=== PATIENT | male | born 1950 | race Caucasian/White ===

== ENCOUNTER 2017-09-16 07:18 | Day surgery (SDC) | payer MEDICARE, OTHER ==
[~2017-09-16 07:18] MED LIST: Acetaminophen TAB* 325 MG PO PRN; Buffered Lidocaine 0.9% SYRIN* 5 ML/SYR SYRINGE INTRADERM ONE; Cyclopentolate 1% OPTH.SOL* 2 ML BTL ONE; Ketorolac 0.5% OPHTH (NF) 0.5 % 5 ML BTL ONE; Lidocaine 1% MPF* 2 ML VIAL ONE; Neomycin/Polymy/Dex OPHTH.OIN* 3.5 GM ONE; Phenylephrine 2.5% OPTH.SOL* 2 ML BTL ONE; Tetracaine 0.5% OPTH.SOL 4 ML* 1 DROP BTL ONE; Tropicamide 1% OPTH.SOL* BTL ONE
[2017-09-16] MEDS ORDERED: Midazolam* 1 MG/ML 2 ML VIAL (2 MG) ONE (08:54)
[2017-09-16 09:24] VITALS: BP 127/81
--- NOTE | 2017-09-16 11:17 | OP ---
DATE OF OPERATION/DATE OF DICTATION: 09/16/2017 - [facility] DATE OF : 1950. SURGEON: Dr. Keaton Rothman. CYTOTECHNOLOGIST/CYTOLOGY SUPERVISOR: None. ANESTHESIA: Topical with intravenous sedation. PRE-OP DIAGNOSIS: Cataract, left eye. POST-OP DIAGNOSIS: Cataract, left eye. OPERATIVE PROCEDURE: Phacoemulsification and cataract extraction with posterior chamber intraocular lens implant, left eye. COMPLICATIONS: None. BLOOD LOSS: None. DESCRIPTION OF PROCEDURE: The patient was brought to the operating room and received a small amount of intravenous sedation. A drop of Tetracaine was placed in his left eye. He was prepped and draped in the usual sterile fashion for ophthalmic surgery and attention was directed to the left eye where a speculum was placed. A paracentesis was created at the 5 o'clock position and 0.1 cc of 1 percent preservative-free Lidocaine was injected into the anterior chamber followed by DisCoVisc. The eye was digitally stabilized while a 2.75 mm keratome was used to create a triplanar clear corneal incision at the 3 o'clock position. A continuous curvilinear capsulorrhexis was created with a cystotome and Utrata forceps. BSS on a cannula was used to hydrodissect the lens from the capsule. Phacoemulsification was performed in a nzyiig-rhp-dyigqtj technique to create four fragments which were removed. Residual cortical material was removed with irrigation and aspiration. DisCoVisc was used to inflate the capsular bag and an SV25T0 20.5 diopter lens was folded and inserted into the capsular bag. DisCoVisc was removed using irrigation and aspiration. BSS on a cannula was used to hydrate the corneal stroma and seal the wound. At the end of the case the pupil was round and the lens was centered. The eye was of normal pressure and the wound was water tight. The speculum was removed and topical Maxitrol ointment was placed on the surface of the eye. The eye was closed, patched and shielded and the patient was sent to the recovery room in stable condition with post operative instructions and follow-up appointment given. [id number] #: [id number] MTDD
== END 2017-09-16 09:30 | disposition home or self-care (01) ==
LOC: OREAST 07:18
PROVIDERS: ATTEND Ophthalmology
DX: H25.12 Age-related nuclear cataract, left eye (principal); E78.00 Pure hypercholesterolemia, unspecified; M54.9 Dorsalgia, unspecified; Z95.0 Presence of cardiac pacemaker; Z95.1 Presence of aortocoronary bypass graft; Z79.82 Long term (current) use of aspirin; Z85.818 Personal history of malignant neoplasm of other sites of lip, oral cavity, and pharynx
CPT/HCPCS: A9270-GY; J2250

== ENCOUNTER → 2017-09-23 07:02 | Day surgery (SDC) | payer MEDICARE, OTHER ==
[~2017-09-23 07:02] MED LIST changes: -Lidocaine 1% MPF* 2 ML VIAL ONE; -Neomycin/Polymy/Dex OPHTH.OIN* 3.5 GM ONE; -Tetracaine 0.5% OPTH.SOL 4 ML* 1 DROP BTL ONE
[2017-09-23 07:30] VITALS: BP 131/83
== END | disposition home or self-care (01) ==
LOC: OREAST 07:02
PROVIDERS: ATTEND Ophthalmology
DX: H25.11 Age-related nuclear cataract, right eye (principal); Z53.9 Procedure and treatment not carried out, unspecified reason
CPT/HCPCS: A9270-GY

== ENCOUNTER 2017-09-30 07:35 | Day surgery (SDC) | payer MEDICARE, OTHER ==
[~2017-09-30 07:35] MED LIST changes: -Cyclopentolate 1% OPTH.SOL* 2 ML BTL ONE; -Ketorolac 0.5% OPHTH (NF) 0.5 % 5 ML BTL ONE; -Phenylephrine 2.5% OPTH.SOL* 2 ML BTL ONE; -Tropicamide 1% OPTH.SOL* BTL ONE
[2017-09-30] MEDS ORDERED: Tropicamide 1% OPTH.SOL* BTL ONE (08:20)
[2017-09-30] MEDS ORDERED: Tetracaine 0.5% OPTH.SOL 4 ML* 1 DROP BTL ONE (08:20)
[2017-09-30] MEDS ORDERED: Neomycin/Polymy/Dex OPHTH.OIN* 3.5 GM ONE (08:20)
[2017-09-30] MEDS ORDERED: Lidocaine 1% MPF* 2 ML VIAL ONE (08:20)
[2017-09-30] MEDS ORDERED: Cyclopentolate 1% OPTH.SOL* 2 ML BTL ONE (08:20)
[2017-09-30] MEDS ORDERED: Phenylephrine 2.5% OPTH.SOL* 2 ML BTL ONE (08:20)
[2017-09-30] MEDS ORDERED: Ketorolac 0.5% OPHTH (NF) 0.5 % 5 ML BTL ONE (08:20)
[2017-09-30] MEDS ORDERED: fentaNYL* 50 MCG/ML 2 ML VIAL (100 MCG VIAL) ONE (08:33)
[2017-09-30] MEDS ORDERED: Midazolam* 1 MG/ML 2 ML VIAL (2 MG) ONE ×2 (08:33→09:40)
[2017-09-30 09:32] VITALS: BP 103/70
[2017-09-30] MEDS ORDERED: Propofol* 10 MG/ML 20 ML BTL IV PUSH ONE (09:41)
--- NOTE | 2017-09-30 23:26 | OP ---
DATE OF OPERATION: 09/30/17 [facility] DATE OF : [birth year] SURGEON: Keaton Rothman MD SAND OPERATOR: None. ANESTHESIA: Topical with intravenous sedation. PRE-OP DIAGNOSIS: Cataract, right eye. POST-OP DIAGNOSIS: Cataract, right eye. OPERATIVE PROCEDURE: Phacoemulsification and cataract extraction with posterior chamber intraocular lens implant, right eye. COMPLICATIONS: None. BLOOD LOSS: None. DESCRIPTION OF PROCEDURE: The patient was brought to the operating room and received a small amount of intravenous sedation. A drop of Tetracaine was placed in his right eye. He was prepped and draped in the usual sterile fashion for ophthalmic surgery and attention was directed to the right eye where a speculum was placed. A paracentesis was created at the 11 o'clock position and 0.1 cc of 1 percent preservative-free Lidocaine was injected into the anterior chamber followed by DisCoVisc. The eye was digitally stabilized while a 2.75 mm keratome was used to create a triplanar clear corneal incision at the 9 o'clock position. A continuous curvilinear capsulorrhexis was created with a cystotome and Utrata forceps. BSS on a cannula was used to hydrodissect the lens from the capsule. Phacoemulsification was performed in a divide-and- conquer technique to create four fragments which were removed. Residual cortical material was removed with irrigation and aspiration. DisCoVisc was used to inflate the capsular bag and an SV25T0 20.5 diopter lens was folded and inserted into the capsular bag. DisCoVisc was removed using irrigation and aspiration. BSS on a cannula was used to hydrate the corneal stroma and seal the wound. At the end of the case the pupil was round and the lens was centered. The eye was of normal pressure and the wound was water tight. The speculum was removed and topical Maxitrol ointment was placed on the surface of the eye. The eye was closed, patched and shielded and the patient was sent to the recovery room in stable condition with postoperative instructions and follow -up appointment given. [id number] #: [id number] MTDD
== END 2017-09-30 09:40 | disposition home or self-care (01) ==
LOC: OREAST 07:35
PROVIDERS: ATTEND Ophthalmology
DX: H25.11 Age-related nuclear cataract, right eye (principal); I25.10 Atherosclerotic heart disease of native coronary artery without angina pectoris; Z95.1 Presence of aortocoronary bypass graft; Z79.01 Long term (current) use of anticoagulants; M19.90 Unspecified osteoarthritis, unspecified site; K21.9 Gastro-esophageal reflux disease without esophagitis
CPT/HCPCS: A9270-GY; J2250; J2704; J3010

== ENCOUNTER 2019-01-18 06:58 | Day surgery (SDC) | payer MEDICARE, OTHER ==
[~2019-01-18 06:58] MED LIST changes: -Acetaminophen TAB* 325 MG PO PRN; -Buffered Lidocaine 0.9% SYRIN* 5 ML/SYR SYRINGE INTRADERM ONE; +Famotidine IV* 10 MG/ML 2 ML (20 mg) ONE; +ceFAZolin 2 GM PREMIX in ORs 2 GM/50 ML BAG IVPB ONE
[2019-01-18] MEDS ORDERED: Phenylephrine 10 MG/ML VIAL* 1 ML VIAL ONE (08:31)
[2019-01-18] MEDS ORDERED: Lidocaine 2% PF * 5 ML VIAL ONE (08:31)
[2019-01-18] MEDS ORDERED: Ondansetron INJ* 2 MG/ML VIAL ONE (08:31)
[2019-01-18] MEDS ORDERED: Propofol* 10 MG/ML 20 ML BTL ONE (08:31)
[2019-01-18] MEDS ORDERED: Ketorolac INJ* 30 MG/ML 1 ML VIAL ONE (08:31)
[2019-01-18] MEDS ORDERED: fentaNYL* 50 MCG/ML 2 ML VIAL (100 MCG VIAL) ONE ×2 (08:31→10:17)
[2019-01-18] MEDS ORDERED: Dexamethasone IV* 4 MG/ML 1 ML (4 MG) ONE (08:31)
[2019-01-18] MEDS ORDERED: Midazolam* 1 MG/ML 5 ML VIAL (5 MG) ONE (08:32)
[2019-01-18] MEDS ORDERED: Bupivacaine 0.5%* 50 ML VIAL ONE (09:24)
[2019-01-18] MEDS ORDERED: Ondansetron INJ* 2 MG/ML VIAL IV PRN (10:20)
[2019-01-18] MEDS ORDERED: oxyCODONE/Acetamin 5/325 MG* TAB PO PRN (10:20)
[2019-01-18] MEDS ORDERED: Naloxone* 0.4 MG/ML 1 ML VIAL IV PRN (10:20)
[2019-01-18] MEDS ORDERED: fentaNYL* 50 MCG/ML 2 ML VIAL (100 MCG VIAL) IV PRN (10:20)
[2019-01-18 15:01] VITALS: BP 119/72
--- NOTE | 2019-01-18 20:16 | OP ---
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 OPERATIVE PROCEDURE: Left four-corner fusion, midfoot with tibial bone graft. DESCRIPTION OF PROCEDURE: The patient was taken to the operating room where a lateral longitudinal incision was made over the dorsum of the first column. We dissected out the first TMT joint as well as the first and second intercuneiform joint. We then placed a Chavez retractor over the dorsum of the second metatarsal base and dissected out the dorsal capsule of the second TMT joint and a laminar framing mill supervisor was placed between the first and second metatarsal bases to allow visualization of that joint as well. All 4 joints were then prepared for arthrodesis using a curette and a small power boo. We harvested some cancellous bone from the proximal Gerdy's tubercle through a 3 cm incision at the proximal knee. We split the iliotibial band at this level and opened up the lateral cortex with a small boo. We harvested cancellous bone replacing it then with some allograft packed chips. We closed the periosteum with 2-0 Vicryl, 3-0 Monocryl and a subcuticular stitch. The autograft was then placed along the 4 spaces in the midfoot, which were then fixed sequentially with dorsal distal, proximal, plantar lag screws 3.0 mm diameter in the first and then second metatarsal bases and then a medial spanning 3.0 plate, which was . Through this plate, we lagged the first and second cuneiform together, the first cuneiform towards the second metatarsal base and the first and second metatarsals. X-rays intraoperatively showed satisfactory position of the hardware and the bone surfaces. We irrigated thoroughly, closing with Monocryl and nylon for the skin and a compression dressing and plaster splint applied. [id number]/CPS #: [id number] [facility]DREN'S HOSPITALKatharina
== END 2019-01-18 14:35 | disposition home or self-care (01) ==
LOC: OR 06:58
PROVIDERS: ATTEND Orthopaedic Surgery
DX: M19.172 Post-traumatic osteoarthritis, left ankle and foot (principal); I25.10 Atherosclerotic heart disease of native coronary artery without angina pectoris; Z95.1 Presence of aortocoronary bypass graft; Z95.0 Presence of cardiac pacemaker; Z95.5 Presence of coronary angioplasty implant and graft; Z85.819 Personal history of malignant neoplasm of unspecified site of lip, oral cavity, and pharynx; G47.33 Obstructive sleep apnea (adult) (pediatric); K21.9 Gastro-esophageal reflux disease without esophagitis
CPT/HCPCS: 76000; C1713; C1776; C9359; J0690; J1100; J1885; J2250; J2405; J2704; J3010; J3490

== ENCOUNTER → 2019-02-24 12:05 | Day surgery (SDC) | payer MEDICARE, OTHER ==
[~2019-02-24 12:05] MED LIST changes: +Buffered Lidocaine 1% SYRIN* 1 ML/SYRINGE INTRADERM ONE; +Dexamethasone IV* 4 MG/ML 1 ML (4 MG) IV SLOW PU ONE; +Dexamethasone IV* 4 MG/ML 1 ML (4 MG) ONE; +DiMENhydriNATE IV* 50 MG/ML VIAL IV PUSH PRN; +Famotidine IV* 10 MG/ML 2 ML (20 mg) IV ONE; +Ketorolac INJ* 30 MG/ML 1 ML VIAL IV PRN; +Lactated Ringers 1000 ML Bag* 1,000 ML IV SCH; +Lidocaine 2% PF * 5 ML VIAL ONE; +Lidocaine 4% TOPICAL* 50 ML TOP.SOLN ONE; +Metoprolol Tartrate IV* 1 MG/ML 5 ML VIAL ONE; +Midazolam* 1 MG/ML 5 ML VIAL (5 MG) ONE; +Naloxone* 0.4 MG/ML 1 ML VIAL IV PRN; +Onabotulinimtoxina 100 UNITS* VIAL ONE; +Ondansetron INJ* 2 MG/ML VIAL ONE; +Oxymetazoline 0.05% NASAL SPR* 15 ML BTL ONE; +Propofol* 10 MG/ML 20 ML BTL ONE; +Succinylcholine* 20 MG/ML 10 ML VIAL ONE; -ceFAZolin 2 GM PREMIX in ORs 2 GM/50 ML BAG IVPB ONE; +fentaNYL* 50 MCG/ML 2 ML VIAL (100 MCG VIAL) IV PRN; +fentaNYL* 50 MCG/ML 2 ML VIAL (100 MCG VIAL) ONE
[2019-02-24 15:54] VITALS: BP 132/86
--- NOTE | 2019-02-24 22:25 | OP ---
DATE OF PROCEDURE: 02/24/19 - [facility] DATE OF : 48 SURGEON: Derrick Pearce MD. ANESTHESIA: General endotracheal anesthesia. PRE-OP DIAGNOSES: 1. Cricopharyngeus spasm. 2. Esophageal stricture. POST-OP DIAGNOSES: 1. Cricopharyngeus spasm. 2. Esophageal stricture. OPERATIVE PROCEDURE: Transoral Botox injection into the cricopharyngeus muscle and bougie dilation of esophageal stricture under general endotracheal anesthesia. COMPLICATIONS: None. DISPOSITION: Good. SPECIMENS: None. BLOOD LOSS: Minimal. I dilated him up to a 60-St [place] bougie. DESCRIPTION OF PROCEDURE: The patient was taken to the operating room, placed in the supine position on the operating table and general endotracheal anesthesia was induced. He was orotracheally intubated, turned and draped for the surgery. Initially, I did the Botox injection using a diverticular scope, and following an NG-tube that I had placed, I inserted into the postcricoid region, dilated it up, and found the cricopharyngeus. He had a small scar beyond there, and right there in the posterior aspect, I injected 20 units of Botox with a transoral injection needle. I then did serial dilations with bougie sounds that I had with some Surgilube starting at 36-St Helenian and working way up to a 60-[place] bougie without difficulties. The patient tolerated this well, no complications, transferred to the recovery room in stable condition. [id number] #: [id number] MTDD
== END | disposition home or self-care (01) ==
LOC: OR 12:05
PROVIDERS: ATTEND Otolaryngology
DX: K22.4 Dyskinesia of esophagus (principal); R13.14 Dysphagia, pharyngoesophageal phase; K22.2 Esophageal obstruction; I25.10 Atherosclerotic heart disease of native coronary artery without angina pectoris; Z95.1 Presence of aortocoronary bypass graft; Z95.5 Presence of coronary angioplasty implant and graft; I49.5 Sick sinus syndrome; Z95.0 Presence of cardiac pacemaker; Z85.51 Personal history of malignant neoplasm of bladder; G47.33 Obstructive sleep apnea (adult) (pediatric); Z85.21 Personal history of malignant neoplasm of larynx
CPT/HCPCS: A9270-GY; J0330; J0585; J1100; J2250; J2405; J2704; J3010; J3490

== ENCOUNTER 2020-10-19 07:15 | Inpatient (IN) ==
[~2020-10-19 07:15] MED LIST changes: +Buffered Lidocaine 1% SYRIN 1 ml INTRADERM ONE; -Buffered Lidocaine 1% SYRIN* 1 ML/SYRINGE INTRADERM ONE; -Dexamethasone IV* 4 MG/ML 1 ML (4 MG) IV SLOW PU ONE; -Dexamethasone IV* 4 MG/ML 1 ML (4 MG) ONE; -DiMENhydriNATE IV* 50 MG/ML VIAL IV PUSH PRN; -Famotidine IV* 10 MG/ML 2 ML (20 mg) IV ONE; -Famotidine IV* 10 MG/ML 2 ML (20 mg) ONE; -Ketorolac INJ* 30 MG/ML 1 ML VIAL IV PRN; -Lactated Ringers 1000 ML Bag* 1,000 ML IV SCH; +Lactated Ringers 1000 ml BAG 1,000 ML IV SCH; -Lidocaine 2% PF * 5 ML VIAL ONE; -Lidocaine 4% TOPICAL* 50 ML TOP.SOLN ONE; -Metoprolol Tartrate IV* 1 MG/ML 5 ML VIAL ONE; +Midazolam 2 mg/2 ml VIAL 1 mg/ml 2 ml VIAL (2 mg) ONE; -Midazolam* 1 MG/ML 5 ML VIAL (5 MG) ONE; -Naloxone* 0.4 MG/ML 1 ML VIAL IV PRN; -Onabotulinimtoxina 100 UNITS* VIAL ONE; -Ondansetron INJ* 2 MG/ML VIAL ONE; -Oxymetazoline 0.05% NASAL SPR* 15 ML BTL ONE; -Propofol* 10 MG/ML 20 ML BTL ONE; +ROPIVACAINE 5 MG/ML 30 ML BTL (0.5%) ONE; -Succinylcholine* 20 MG/ML 10 ML VIAL ONE; -fentaNYL* 50 MCG/ML 2 ML VIAL (100 MCG VIAL) IV PRN; -fentaNYL* 50 MCG/ML 2 ML VIAL (100 MCG VIAL) ONE
[2020-10-19] MEDS ORDERED: ceFAZolin 2 GM PREMIX 2 GM/50 ML BAG ONE (07:17)
[2020-10-19] MEDS ORDERED: Buffered Lidocaine 1% SYRIN 1 ml INTRADERM ONE (07:18)
[2020-10-19] MEDS ORDERED: Lidocaine 1% MPF 5 ML VIAL ONE (07:45)
[2020-10-19] MEDS ORDERED: Midazolam 2 mg/2 ml VIAL 1 mg/ml 2 ml VIAL (2 mg) ONE (08:05)
[2020-10-19] MEDS ORDERED: Dexamethasone IV 4 MG/ML VIAL 1 ml VIAL ONE (08:05)
[2020-10-19] MEDS ORDERED: ROPIVACAINE 5 MG/ML 30 ML BTL (0.5%) ONE ×2 (08:21→08:35)
[2020-10-19] MEDS ORDERED: fentaNYL 100 mcg/2 ml 50 MCG/ML VIAL ONE (08:37)
[2020-10-19] MEDS ORDERED: Phenylephrine IV 10 MG/ML 1 ml VIAL ONE (10:25)
[2020-10-19] MEDS ORDERED: DiMENhydriNATE IV 50 mg/ml 1 ml VIAL IV PUSH PRN (10:44)
[2020-10-19] MEDS ORDERED: fentaNYL 100 mcg/2 ml 50 MCG/ML VIAL IV PRN (10:44)
[2020-10-19] MEDS ORDERED: Naloxone 0.4 mg VIAL 0.4 mg/ml 1 ml VIAL IV PRN (10:44)
[2020-10-19] MEDS ORDERED: Propofol 10 MG/ML 20 ML BTL ONE (11:07)
[2020-10-19] MEDS ORDERED: Ondansetron 4 mg VIAL 2 MG/ML 2 ml VIAL IV PRN (11:37)
[2020-10-19] MEDS ORDERED: Magnesium Hydroxide LIQ 30 ML UDC PO PRN (11:37)
[2020-10-19] MEDS ORDERED: Morphine 2 MG/ML SYRINGE IV PRN (11:37)
[2020-10-19] MEDS ORDERED: Lactulose 30 ml UDC PO PRN (11:37)
[2020-10-19] MEDS ORDERED: oxyCODONE/Acetamin 5/325 mg TAB PO PRN (11:37)
[2020-10-19] MEDS ORDERED: diPHENhydraMINE 25 mg TAB PO PRN (11:37)
[2020-10-19] MEDS ORDERED: Ondansetron ODT 4 mg TAB 4 MG TAB PO PRN (11:37)
[2020-10-19] MEDS ORDERED: diPHENhydraMINE IV 50 MG/ML 1 ml VIAL (BENADRYL) IV PRN (11:37)
[2020-10-19] MEDS: Lactated Ringers 1000 ml BAG 1,000 ML IV SCH (13:04)
[2020-10-19] MEDS: Carbidopa/Levodop 25/100 MG TAB PO SCH ×2 (13:53→18:18)
[2020-10-19] MEDS: ceFAZolin 1 GM ADVAN 1 GM in NS 0.9% 50 ML 50 ML IVPB SCH (17:12)
[2020-10-19] MEDS: Magnesium Hydroxide LIQ 30 ML UDC PO SCH (20:51)
[2020-10-19] MEDS ORDERED: ROPINIROLE 6 MG PO SCH (21:00)
[2020-10-20] MEDS: oxyCODONE/Acetamin 5/325 mg TAB PO PRN ×2 (00:45→06:00)
[2020-10-20] MEDS: ceFAZolin 1 GM ADVAN 1 GM in NS 0.9% 50 ML 50 ML IVPB SCH ×2 (00:46→10:52)
[2020-10-20] MEDS: Lactated Ringers 1000 ml BAG 1,000 ML IV SCH (00:52)
[2020-10-20 06:09] LABS: Hematocrit 34 % (42-52); Hemoglobin 11.7 g/dL (14.0-18.0); Mean Platelet Volume 7.7 fL (7.4-10.4); Platelet Count 143 10^3/uL (150-450)
[2020-10-20 06:32] LABS: BUN/Creatinine Ratio 18.9 (8-20); Calcium 8.3 mg/dL (8.6-10.3); EGFR African American 94.6 (>60); EGFR Non-African American 78.2 (>60); Potassium 4.3 mmol/L (3.5-5.0)
[2020-10-20] MEDS: Magnesium Hydroxide LIQ 30 ML UDC PO SCH ×2 (08:28→23:12)
[2020-10-20] MEDS: Vitamin THERAPEUTIC TAB PO SCH (08:28)
[2020-10-20] MEDS: Aspirin EC 81 mg TAB.EC (enteric coated) PO SCH (08:29)
[2020-10-20] MEDS: Carbidopa/Levodop 25/100 MG TAB PO SCH ×3 (08:29→18:08)
[2020-10-20] MEDS ORDERED: Furosemide 20 mg/2 ml IV VIAL IV SLOW PU ONE (13:50)
[2020-10-20] MEDS ORDERED: Iohexol 350 (CONTRAST) 500 ML MDV IV SCH (14:04)
[2020-10-20] MEDS ORDERED: Piperacillin/Tazobac ADVAN 3.375 GM in NS 0.9% 100 ml BAG 100 ML IV ONE (15:49)
[2020-10-20] MEDS ORDERED: Zosyn per Pharmacy NOTE FOLLOW UP SCH (16:00)
[2020-10-20 16:03] LABS: Influenza A Molecular Negative (Negative); Influenza B Molecular Negative (Negative)
[2020-10-20 16:09] LABS: ABS Eosinophils 0.1 10^3/ul (0-0.6); ABS Lymphocytes 0.4 10^3/ul (1.0-4.8); ABS Monocytes 0.4 10^3/ul (0-0.8); ABS Neutrophils 6.6 10^3/ul (1.5-7.7); Hematocrit 32 % (42-52); Hemoglobin 11.2 g/dL (14.0-18.0); Lymphocyte % 5.1 %; Mean Corpuscular HGB Conc 35 g/dL (31-36); Mean Corpuscular Hemoglobin 34 pg (27-31); Mean Corpuscular Volume 96 fL (80-94); Mean Platelet Volume 7.7 fL (7.4-10.4); Platelet Count 109 10^3/uL (150-450); Red Blood Count 3.32 10^6 /uL (4.18-5.48); Red Cell Distribution Width 13 % (10-15); White Blood Count 7.5 10^3/uL (3.5-10.8)
[2020-10-20 16:26] LABS: Albumin 3.6 g/dL (3.2-5.2); Albumin/Globulin Ratio 1.7 (1-3); BUN/Creatinine Ratio 20.9 (8-20); Calcium 8.1 mg/dL (8.6-10.3); EGFR African American 79.8 (>60); Globulin 2.1 g/dL (2-4); Potassium 4.6 mmol/L (3.5-5.0); Total Bilirubin 0.6 mg/dL (0.2-1.0); Total Protein 5.7 g/dL (6.4-8.9)
[2020-10-20] MEDS ORDERED: Furosemide 40 mg/4 ml IV VIAL IV SLOW PU ONE (19:31)
[2020-10-20] MEDS: ZOSYN 3.375 GM Q8H per EXTENDED INFUSION IV SCH (22:47)
[2020-10-20 23:39] LABS: Urine Appearance Clear; Urine Bilirubin Negative (Negative); Urine Blood 2+ (Negative); Urine Color Straw; Urine Glucose Negative (Negative); Urine Ketones Negative (Negative); Urine Nitrite Negative (Negative); Urine Protein Negative (Negative); Urine Specific Gravity 1.023 (1.010-1.030); Urine Urobilinogen Negative (Negative)
[2020-10-20 23:50] LABS: Urine Bacteria Absent (Absent); Urine Red Blood Cell 1+(3-5/hpf) (Absent); Urine White Blood Cell Absent (Absent)
[2020-10-21 05:00] LABS: Hematocrit 27 % (42-52); Hemoglobin 9.3 g/dL (14.0-18.0); Mean Corpuscular HGB Conc 34 g/dL (31-36); Mean Corpuscular Hemoglobin 33 pg (27-31); Mean Corpuscular Volume 95 fL (80-94); Red Blood Count 2.86 10^6 /uL (4.18-5.48); Red Cell Distribution Width 13 % (10-15)
[2020-10-21 05:07] LABS: Calcium 7.9 mg/dL (8.6-10.3); EGFR African American 53.8 (>60); EGFR Non-African American 44.4 (>60); Potassium 4.5 mmol/L (3.5-5.0)
[2020-10-21] MEDS: ZOSYN 3.375 GM Q8H per EXTENDED INFUSION IV SCH ×3 (05:39→21:28)
[2020-10-21 06:58] LABS: ABS Basophils 0.1 10^3/ul (0-0.2); ABS Eosinophils 0.3 10^3/ul (0-0.6); ABS Lymphocytes 0.8 10^3/ul (1.0-4.8); ABS Monocytes 0.4 10^3/ul (0-0.8); ABS Neutrophils 7.4 10^3/ul (1.5-7.7); Eosinophil % 2.8 %; Lymphocyte % 9.1 %; Mean Platelet Volume 8.2 fL (7.4-10.4); Platelet Count 95 10^3/uL (150-450)
[2020-10-21] MEDS: Aspirin EC 81 mg TAB.EC (enteric coated) PO SCH (08:17)
[2020-10-21] MEDS: Vitamin THERAPEUTIC TAB PO SCH (08:18)
[2020-10-21] MEDS: Carbidopa/Levodop 25/100 MG TAB PO SCH ×3 (08:19→18:28)
[2020-10-21] MEDS: Magnesium Hydroxide LIQ 30 ML UDC PO SCH ×2 (08:19→21:34)
[2020-10-21] MEDS ORDERED: Linezolid 600 MG IVPREMIX(*) 600 MG/300 ML BAG IVPB SCH (09:00)
[2020-10-21] MEDS ORDERED: Vancomycin 1,000 MG in NS 0.9% 250 ml 250 ML IVPB ONE (09:31)
[2020-10-21] MEDS ORDERED: Vancomycin per Pharmacy 1 EA NOTE FOLLOW UP PRN (09:33)
[2020-10-21] MEDS ORDERED: VANCOMYCIN 1250 MG X 1 DOSE, THEN PER PHARMACY PROTOCOL IVPB ONE (10:00)
[2020-10-21] MEDS ORDERED: Vancomycin per Pharmacy 1 EA NOTE FOLLOW UP SCH (10:00)
[2020-10-21 10:24] LABS: Magnesium 2.1 mg/dL (1.9-2.7); Phosphorus 3.2 mg/dL (2.5-5.0)
[2020-10-22] MEDS: Clindamycin 600 MG/D5W BAG 600 MG/50 ML BAG IV SCH ×3 (01:26→17:00)
[2020-10-22] MEDS: ZOSYN 3.375 GM Q8H per EXTENDED INFUSION IV SCH ×3 (04:23→20:39)
[2020-10-22 05:25] LABS: Hematocrit 25 % (42-52); Hemoglobin 8.6 g/dL (14.0-18.0); Mean Corpuscular HGB Conc 34 g/dL (31-36); Mean Corpuscular Hemoglobin 32 pg (27-31); Mean Corpuscular Volume 96 fL (80-94); Mean Platelet Volume 7.9 fL (7.4-10.4); Platelet Count 92 10^3/uL (150-450); Red Blood Count 2.64 10^6 /uL (4.18-5.48); Red Cell Distribution Width 13 % (10-15); White Blood Count 6.6 10^3/uL (3.5-10.8)
[2020-10-22 05:42] LABS: Vancomycin Random 4.9 mcg/mL
[2020-10-22 05:43] LABS: BUN/Creatinine Ratio 19.2 (8-20); Calcium 7.9 mg/dL (8.6-10.3); EGFR African American 90.2 (>60); EGFR Non-African American 74.5 (>60); Potassium 3.9 mmol/L (3.5-5.0)
[2020-10-22] MEDS ORDERED: Vancomycin Random Level NOTE FOLLOW UP ONE (06:00)
[2020-10-22] MEDS: Vitamin THERAPEUTIC TAB PO SCH (09:44)
[2020-10-22] MEDS: Carbidopa/Levodop 25/100 MG TAB PO SCH ×3 (09:47→17:00)
[2020-10-22] MEDS: Lactulose 30 ml UDC PO SCH ×2 (09:57→22:20)
[2020-10-22] MEDS: Magnesium Hydroxide LIQ 30 ML UDC PO SCH (09:58)
[2020-10-22] MEDS: Pantoprazole VIAL 40 MG VIAL IV SCH ×2 (13:53→20:43)
[2020-10-22] MEDS ORDERED: Magnesium Hydroxide LIQ 30 ML UDC PO PRN (14:17)
[2020-10-22] MEDS ORDERED: GuaiFENesin DM sugar free 100mg/10mg 5 ML UDC PO PRN (16:27)
[2020-10-23] MEDS: Clindamycin 600 MG/D5W BAG 600 MG/50 ML BAG IV SCH ×3 (01:10→18:10)
[2020-10-23] MEDS: ZOSYN 3.375 GM Q8H per EXTENDED INFUSION IV SCH ×3 (04:22→21:35)
[2020-10-23 05:34] LABS: Hematocrit 22 % (42-52); Hemoglobin 7.5 g/dL (14.0-18.0); Mean Corpuscular HGB Conc 34 g/dL (31-36); Mean Corpuscular Hemoglobin 32 pg (27-31); Mean Corpuscular Volume 96 fL (80-94); Mean Platelet Volume 8.2 fL (7.4-10.4); Platelet Count 100 10^3/uL (150-450); Red Blood Count 2.34 10^6 /uL (4.18-5.48); Red Cell Distribution Width 13 % (10-15); White Blood Count 5.6 10^3/uL (3.5-10.8)
[2020-10-23] MEDS: Carbidopa/Levodop 25/100 MG TAB PO SCH ×3 (08:56→18:13)
[2020-10-23] MEDS: Vitamin THERAPEUTIC TAB PO SCH (08:58)
[2020-10-23] MEDS: Pantoprazole VIAL 40 MG VIAL IV SCH ×2 (09:00→21:12)
[2020-10-23] MEDS: Polyethylene Glycol 3350 17 GM PACKET PO SCH (09:01)
[2020-10-23] MEDS: Lactulose 30 ml UDC PO SCH ×2 (09:01→21:36)
[2020-10-24] MEDS: Clindamycin 600 MG/D5W BAG 600 MG/50 ML BAG IV SCH ×3 (02:30→17:45)
[2020-10-24] MEDS: ZOSYN 3.375 GM Q8H per EXTENDED INFUSION IV SCH ×3 (04:57→20:09)
[2020-10-24] MEDS: Carbidopa/Levodop 25/100 MG TAB PO SCH ×3 (08:35→17:46)
[2020-10-24] MEDS: Vitamin THERAPEUTIC TAB PO SCH (08:40)
[2020-10-24] MEDS: Lactulose 30 ml UDC PO SCH ×2 (08:44→20:28)
[2020-10-24] MEDS: Pantoprazole VIAL 40 MG VIAL IV SCH ×2 (08:46→20:08)
[2020-10-24] MEDS: Polyethylene Glycol 3350 17 GM PACKET PO SCH (08:59)
[2020-10-24 09:43] LABS: ABS Eosinophils 0.3 10^3/ul (0-0.6); ABS Lymphocytes 0.4 10^3/ul (1.0-4.8); ABS Monocytes 0.5 10^3/ul (0-0.8); ABS Neutrophils 3.7 10^3/ul (1.5-7.7); Eosinophil % 5.7 %; Hematocrit 24 % (42-52); Hemoglobin 8.1 g/dL (14.0-18.0); Lymphocyte % 8.1 %; Mean Corpuscular HGB Conc 34 g/dL (31-36); Mean Corpuscular Hemoglobin 33 pg (27-31); Mean Corpuscular Volume 97 fL (80-94); Mean Platelet Volume 8.2 fL (7.4-10.4); Platelet Count 141 10^3/uL (150-450); Red Blood Count 2.48 10^6 /uL (4.18-5.48); Red Cell Distribution Width 14 % (10-15); White Blood Count 4.9 10^3/uL (3.5-10.8)
[2020-10-24 10:04] LABS: BUN/Creatinine Ratio 16.8 (8-20); Calcium 8.1 mg/dL (8.6-10.3); EGFR African American 94.6 (>60); EGFR Non-African American 78.2 (>60); Potassium 3.9 mmol/L (3.5-5.0)
[2020-10-25] MEDS: Clindamycin 600 MG/D5W BAG 600 MG/50 ML BAG IV SCH ×2 (01:14→10:19)
[2020-10-25] MEDS: ZOSYN 3.375 GM Q8H per EXTENDED INFUSION IV SCH ×2 (04:52→12:31)
[2020-10-25 07:16] LABS: ABS Eosinophils 0.2 10^3/ul (0-0.6); ABS Lymphocytes 0.5 10^3/ul (1.0-4.8); ABS Monocytes 0.7 10^3/ul (0-0.8); ABS Neutrophils 3.5 10^3/ul (1.5-7.7); Hematocrit 22 % (42-52); Hemoglobin 7.5 g/dL (14.0-18.0); Lymphocyte % 10.3 %; Mean Corpuscular HGB Conc 34 g/dL (31-36); Mean Corpuscular Hemoglobin 33 pg (27-31); Mean Corpuscular Volume 96 fL (80-94); Mean Platelet Volume 8.4 fL (7.4-10.4); Platelet Count 146 10^3/uL (150-450); Red Blood Count 2.32 10^6 /uL (4.18-5.48); Red Cell Distribution Width 13 % (10-15); White Blood Count 4.9 10^3/uL (3.5-10.8)
[2020-10-25 07:39] LABS: BUN/Creatinine Ratio 17.8 (8-20); Calcium 7.9 mg/dL (8.6-10.3); EGFR African American 100.7 (>60); EGFR Non-African American 83.2 (>60); Potassium 4.3 mmol/L (3.5-5.0)
[2020-10-25] MEDS: Carbidopa/Levodop 25/100 MG TAB PO SCH ×2 (08:18→14:31)
[2020-10-25] MEDS: Lactulose 30 ml UDC PO SCH (08:37)
[2020-10-25] MEDS: Polyethylene Glycol 3350 17 GM PACKET PO SCH (08:37)
[2020-10-25] MEDS: Pantoprazole VIAL 40 MG VIAL IV SCH (10:19)
[2020-10-25] MEDS: Vitamin THERAPEUTIC TAB PO SCH (10:19)
[2020-10-25 11:23] LABS: Hematocrit 24 % (42-52); Hemoglobin 7.9 g/dL (14.0-18.0)
[2020-10-25 11:33] VITALS: BP 144/58
== END 2020-10-25 16:15 | disposition home health service (06) | DRG 469 ==
LOC: SSU 07:15 → OR 07:15 → ICU 10-20 15:10 → SSU 10-23 16:16
PROVIDERS: ADMIT Orthopaedic Surgery Adult Reconstructive Orthopaedic Surgery; ATTEND Orthopaedic Surgery Adult Reconstructive Orthopaedic Surgery

== ENCOUNTER 2023-10-14 15:56 | Observation (INO) ==
[2023-10-14] MEDS: NS 0.9% 1000 ml BAG 1,000 ML IV ONE ×2 (16:48→18:39)
[2023-10-14] MEDS: Albuterol/Ipratropium NEB.SOL (2.5/0.5 MG) 3 ML NEB.SOLN INH ONE (16:48)
[2023-10-14 16:53] LABS: ABS Eosinophils 0.1 10^3/uL (0.0-0.5); ABS Lymphocytes 0.6 10^3/uL (1.0-4.8); ABS Monocytes 0.3 10^3/uL (0.0-1.1); ABS Neutrophils 3.2 10^3/uL (1.5-7.6); Hematocrit 39.4 % (38-53); Hemoglobin 13.3 g/dL (13.2-16.3); Lymphocyte % 13.5 %; Mean Corpuscular Hemoglobin 32.7 pg (27-33); Mean Corpuscular Hgb Conc 33.8 g/dL (31-36); Mean Corpuscular Volume 96.7 fL (80-97); Mean Platelet Volume 7.8 fL (7.5-11.2); Platelet Count 146 10^3/uL (150-450); Red Blood Count 4.07 10^6/uL (4.06-5.63); Red Cell Distribution Width 13.6 % (12-17); White Blood Count 4.2 10^3/uL (3.6-10.2)
[2023-10-14 17:10] LABS: Activated Partial Thrombo Time 32.9 seconds (26.0-38.0); INR 1.05 (0.83-1.13)
[2023-10-14 17:12] LABS: Albumin 3.9 g/dL (3.2-5.2); Albumin/Globulin Ratio 1.3 (1-3); C Reactive Protein 43.89 mg/L (<8.01); Calcium 8.4 mg/dL (8.6-10.3); Creatinine, Serum 0.95 mg/dL (0.67-1.17); Potassium 4.2 mmol/L (3.5-5.0); Total Bilirubin 0.6 mg/dL (0.2-1.0); Total Protein 6.9 g/dL (6.4-8.9)
[2023-10-14 17:16] LABS: Urine Appearance Turbid; Urine Color Orange
[2023-10-14] MEDS: methylPREDNISolone SOD SUCC 125 mg 2 ML VIAL IV ONE (17:20)
[2023-10-14] MEDS: Acetaminophen IV 1 GM/100ML 1,000 MG/100 ML BAG IV ONE (17:20)
[2023-10-14 17:39] LABS: Urine Specific Gravity 1.027 (1.002-1.030)
[2023-10-14] MEDS: Ondansetron 4 mg VIAL 2 MG/ML 2 ml VIAL IV ONE (17:40)
[2023-10-14] MEDS: Iohexol 350 (CONTRAST) 500 ML MDV IV ONE (17:55)
[2023-10-14 18:00] LABS: Urine Bacteria Absent /HPF (Absent); Urine Red Blood Cell 3+(>10/hpf) /HPF (0-Trace); Urine White Blood Cell 2+(11-20/hpf) /HPF (0-Trace)
[2023-10-14] MEDS: Piperacillin/Tazobac 3.375 BAG 3.375 GM/100 ML BAG IV ONE (18:39)
[2023-10-14] MEDS: Enoxaparin 80 MG/0.8 ML SYR SUBCUT ONE (19:23)
[2023-10-14] MEDS ORDERED: Zosyn per Pharmacy NOTE FOLLOW UP SCH (20:00)
[2023-10-14] MEDS: Carbidopa/Levodop 25/100 MG TAB PO SCH (21:23)
[2023-10-14] MEDS: ROPINIROLE 6 MG PO SCH (21:24)
[2023-10-14] MEDS: ZOSYN 3.375 GM Q8H per EXTENDED INFUSION IV SCH (22:31)
[2023-10-15] MEDS: Al Hydrox/Mg Hydrox/Simet LIQ 30 ML UDC PO ONE (04:26)
[2023-10-15] MEDS ORDERED: Heparin DRIP 25,000 UNITS BAG 25,000 UNITS/250 ML BAG IV SCH (05:00)
[2023-10-15] MEDS ORDERED: Heparin 5000 UNITS/ML 1 mL VIAL IV SCH (05:00)
[2023-10-15 06:43] LABS: ABS Lymphocytes 0.3 10^3/uL (1.0-4.8); ABS Monocytes 0.2 10^3/uL (0.0-1.1); ABS Neutrophils 7.7 10^3/uL (1.5-7.6); Hematocrit 36.8 % (38-53); Hemoglobin 12.7 g/dL (13.2-16.3); Lymphocyte % 3.5 %; Mean Corpuscular Hemoglobin 33.2 pg (27-33); Mean Corpuscular Hgb Conc 34.6 g/dL (31-36); Mean Corpuscular Volume 96.2 fL (80-97); Platelet Count 133 10^3/uL (150-450); Red Blood Count 3.82 10^6/uL (4.06-5.63); Red Cell Distribution Width 13.5 % (12-17); White Blood Count 8.2 10^3/uL (3.6-10.2)
[2023-10-15 07:00] LABS: Calcium 8.3 mg/dL (8.6-10.3); Creatinine, Serum 0.93 mg/dL (0.67-1.17); Potassium 4.1 mmol/L (3.5-5.0); eGFR CKD-EPI 86.2 (>60)
[2023-10-15] MEDS: Enoxaparin 80 MG/0.8 ML SYR SUBCUT SCH (07:42)
[2023-10-15] MEDS ORDERED: Aspirin EC 81 mg TAB.EC (enteric coated) PO SCH (09:00)
[2023-10-15] MEDS: cefTRIAXone 1 gm/50 mL D5W 1 GM/50 ML BAG IV SCH (11:30)
[2023-10-16 06:48] LABS: ABS Eosinophils 0.1 10^3/uL (0.0-0.5); ABS Lymphocytes 0.8 10^3/uL (1.0-4.8); ABS Monocytes 0.8 10^3/uL (0.0-1.1); ABS Neutrophils 7.5 10^3/uL (1.5-7.6); Eosinophil % 0.8 %; Hematocrit 39.1 % (38-53); Hemoglobin 13.3 g/dL (13.2-16.3); Lymphocyte % 8.7 %; Mean Corpuscular Volume 96.9 fL (80-97); Mean Platelet Volume 7.8 fL (7.5-11.2); Platelet Count 152 10^3/uL (150-450); Red Blood Count 4.03 10^6/uL (4.06-5.63); Red Cell Distribution Width 13.9 % (12-17); White Blood Count 9.2 10^3/uL (3.6-10.2)
[2023-10-16 07:08] LABS: Calcium 8.7 mg/dL (8.6-10.3); Creatinine, Serum 0.91 mg/dL (0.67-1.17); Potassium 4.3 mmol/L (3.5-5.0); eGFR CKD-EPI 88.4 (>60)
[2023-10-16] MEDS: cefTRIAXone 1 gm/50 mL D5W 1 GM/50 ML BAG IV SCH (09:28)
[2023-10-16 09:38] VITALS: BP 123/51
== END 2023-10-16 10:45 | disposition home or self-care (01) ==
LOC: ED 15:56 → EDHOLD 15:56 → SUATTDRO 19:46 → MED 10-15 14:41
PROVIDERS: ADMIT Internal Medicine; ATTEND Internal Medicine

== ENCOUNTER 2023-10-31 13:57 | Inpatient (IN) ==
[2023-10-31 14:47] LABS: Activated Partial Thrombo Time 38.4 seconds (26.0-38.0); INR 1.41 (0.83-1.13)
[2023-10-31 14:50] LABS: ABS Lymphocytes 0.3 10^3/uL (1.0-4.8); ABS Monocytes 0.9 10^3/uL (0.0-1.1); ABS Neutrophils 6.7 10^3/uL (1.5-7.6); ABS Nucleated RBC 0.01 10^3/ul; Eosinophil % 0.4 %; Hematocrit 35.7 % (38-53); Hemoglobin 12.2 g/dL (13.2-16.3); Lymphocyte % 4.2 %; Mean Corpuscular Hemoglobin 33.1 pg (27-33); Mean Corpuscular Hgb Conc 34.2 g/dL (31-36); Mean Corpuscular Volume 96.8 fL (80-97); Mean Platelet Volume 7.7 fL (7.5-11.2); Nucleated Red Blood Cells % 0.1 %/100WBC (0.0-0.8); Platelet Count 214 10^3/uL (150-450); Red Blood Count 3.68 10^6/uL (4.06-5.63); Red Cell Distribution Width 13.9 % (12-17)
[2023-10-31] MEDS: Lactated Ringers SEPSIS* BAG 2,450 ML IV ONE (15:00)
[2023-10-31] MEDS: cefTRIAXone 2 gm/50 mL D5W 2 GM/50 ML BAG IV ONE (15:00)
[2023-10-31] MEDS: Acetaminophen IV 1 GM/100ML 1,000 MG/100 ML BAG IV ONE (15:26)
[2023-10-31 15:32] LABS: Albumin 3.9 g/dL (3.2-5.2); Albumin/Globulin Ratio 1.4 (1-3); C Reactive Protein 109.44 mg/L (<8.01); Calcium 8.4 mg/dL (8.6-10.3); Creatinine, Serum 0.93 mg/dL (0.67-1.17); Globulin 2.8 g/dL (2-4); Potassium 4.2 mmol/L (3.5-5.0); Total Bilirubin 0.5 mg/dL (0.2-1.0); Total Protein 6.7 g/dL (6.4-8.9); eGFR CKD-EPI 86.2 (>60)
[2023-10-31 15:59] LABS: Urine Appearance Turbid; Urine Bilirubin Negative (Negative); Urine Blood 3+ (Negative); Urine Glucose Negative (Negative); Urine Ketones Negative (Negative); Urine Nitrite Negative (Negative); Urine Protein 1+ (>=30 mg/dL) (Negative); Urine Specific Gravity 1.025 (1.002-1.030); Urine Urobilinogen Negative (Negative); Urine pH 6.5 (5.0-8.0)
[2023-10-31 16:03] LABS: Urine Bacteria 1+ /HPF (Absent); Urine Red Blood Cell 3+(>10/hpf) /HPF (0-Trace); Urine White Blood Cell 3+(>20/hpf) /HPF (0-Trace)
[2023-10-31] MEDS: Carbidopa/Levodop 25/100 MG TAB PO ONE (16:03)
[2023-10-31 16:04] LABS: Urine Color Amber
[2023-10-31] MEDS: Gentamicin ADULT 160 MG in NS 0.9% 100 ml BAG 100 ML IVPB ONE (16:04)
[2023-10-31] MEDS: Carbidopa/Levodop 25/100 MG TAB PO SCH (19:32)
[2023-10-31] MEDS: ROPINIROLE 6 MG PO SCH (21:33)
[2023-11-01 05:44] LABS: ABS Lymphocytes 0.6 10^3/uL (1.0-4.8); ABS Neutrophils 5.8 10^3/uL (1.5-7.6); Eosinophil % 0.5 %; Hematocrit 32.2 % (38-53); Hemoglobin 11.1 g/dL (13.2-16.3); Lymphocyte % 8.1 %; Mean Corpuscular Hemoglobin 33.2 pg (27-33); Mean Corpuscular Hgb Conc 34.3 g/dL (31-36); Mean Corpuscular Volume 96.7 fL (80-97); Mean Platelet Volume 7.8 fL (7.5-11.2); Platelet Count 178 10^3/uL (150-450); Red Blood Count 3.33 10^6/uL (4.06-5.63); Red Cell Distribution Width 13.5 % (12-17); White Blood Count 7.5 10^3/uL (3.6-10.2)
[2023-11-01 05:59] LABS: C Reactive Protein 136.58 mg/L (<8.01); Calcium 7.9 mg/dL (8.6-10.3); Creatinine, Serum 0.86 mg/dL (0.67-1.17); Magnesium 1.7 mg/dL (1.9-2.7); eGFR CKD-EPI 90.9 (>60)
[2023-11-01] MEDS ORDERED: Enoxaparin 80 MG/0.8 ML SYR SUBCUT SCH (09:00)
[2023-11-01] MEDS: Magnesium Sulfate 2 gm BAG 2 GM/50 ML BAG IVPB ONE (12:24)
[2023-11-01] MEDS: Enoxaparin 80 MG/0.8 ML SYR SUBCUT SCH (14:34)
[2023-11-01] MEDS: cefTRIAXone 1 gm/50 mL D5W 1 GM/50 ML BAG IV SCH (14:34)
[2023-11-01] MEDS: Acetaminophen IV 1 GM/100ML 1,000 MG/100 ML BAG IV SCH (15:27)
[2023-11-01] MEDS: Carbidopa/Levodop 25/100 MG TAB PO SCH (15:57)
[2023-11-02 10:44] LABS: ABS Eosinophils 0.2 10^3/uL (0.0-0.5); ABS Lymphocytes 0.4 10^3/uL (1.0-4.8); ABS Monocytes 0.5 10^3/uL (0.0-1.1); ABS Neutrophils 2.6 10^3/uL (1.5-7.6); Eosinophil % 4.5 %; Hematocrit 32.1 % (38-53); Hemoglobin 11.2 g/dL (13.2-16.3); Lymphocyte % 10.2 %; Mean Corpuscular Hemoglobin 33.3 pg (27-33); Mean Corpuscular Hgb Conc 34.8 g/dL (31-36); Mean Corpuscular Volume 95.8 fL (80-97); Mean Platelet Volume 7.7 fL (7.5-11.2); Nucleated Red Blood Cells % 0.1 %/100WBC (0.0-0.8); Platelet Count 185 10^3/uL (150-450); Red Blood Count 3.35 10^6/uL (4.06-5.63); White Blood Count 3.6 10^3/uL (3.6-10.2)
[2023-11-02 11:08] LABS: Calcium 8.2 mg/dL (8.6-10.3); Creatinine, Serum 0.79 mg/dL (0.67-1.17); Potassium 4.3 mmol/L (3.5-5.0); eGFR CKD-EPI 93.2 (>60)
[2023-11-03 06:25] LABS: ABS Eosinophils 0.2 10^3/uL (0.0-0.5); ABS Lymphocytes 0.4 10^3/uL (1.0-4.8); ABS Monocytes 0.5 10^3/uL (0.0-1.1); ABS Neutrophils 2.6 10^3/uL (1.5-7.6); Eosinophil % 6.6 %; Hematocrit 32.4 % (38-53); Mean Corpuscular Hemoglobin 32.6 pg (27-33); Mean Corpuscular Hgb Conc 33.9 g/dL (31-36); Platelet Count 196 10^3/uL (150-450); Red Blood Count 3.38 10^6/uL (4.06-5.63); Red Cell Distribution Width 13.6 % (12-17); White Blood Count 3.7 10^3/uL (3.6-10.2)
[2023-11-03 06:40] LABS: C Reactive Protein 90.66 mg/L (<8.01); Calcium 8.2 mg/dL (8.6-10.3); Creatinine, Serum 0.88 mg/dL (0.67-1.17); Magnesium 1.9 mg/dL (1.9-2.7); Potassium 4.1 mmol/L (3.5-5.0); eGFR CKD-EPI 90.2 (>60)
[2023-11-03] MEDS: Ampicillin ADVAN 2 GM in NS 0.9% 100 ml BAG 100 ML IVPB SCH (12:15)
[2023-11-03 17:23] VITALS: BP 123/83
== END 2023-11-03 18:31 | disposition home or self-care (01) | DRG 871 ==
LOC: ED 13:57 → SUATTDRO 17:38 → EDHOLD 17:38 → MED 20:22
PROVIDERS: ADMIT Student in an Organized Health Care Education/Training Program; ATTEND Internal Medicine